=== PATIENT | female | born 1985 | race Hispanic/Latino ===

== ENCOUNTER 2023-10-17 12:39 | Emergency (ER) | payer OTHER ==
[~2023-10-17] VITALS: Ht 154.9 cm; Wt 52.2 kg
[2023-10-17] MEDS ORDERED: ONDANSETRON 4MG INJ IVP ONE (13:30)
[2023-10-17] MEDS ORDERED: 0.9%NACL 1000ML 1,000 ML IV ONE (13:30)
[2023-10-17] MEDS ORDERED: KETOROLAC 30MG VIAL (30MG/ML) IVP ONE (13:30)
[2023-10-17 14:06] LABS: BASOPHILS # (AUTO) 0.04 K/uL (0.00-0.20); BASOPHILS % (AUTO) 0.3 % (0.0-5.0); EOSINOPHILS # (AUTO) 0.01 K/uL (0.00-0.70); EOSINOPHILS % (AUTO) 0.1 % (0.0-8.0); HEMATOCRIT 42.4 % (36-48); IMMATURE GRANULOCYTE ABSOLUTE 0.03 K/uL (0-1); LYMPHOCYTES # (AUTO) 0.5 K/uL (1.0-4.8); MEAN CORPUSCULAR HEMOGLOBIN 28.4 pg (27.0-33.0); MEAN CORPUSCULAR HGB CONC 32.3 g/dL (32.0-36.0); MEAN CORPUSCULAR VOLUME 87.8 fL (79-99); MONOCYTES # (AUTO) 0.1 K/uL (0.1-1.0); MONOCYTES % (AUTO) 0.6 % (3.0-13.0); NEUTROPHILS # (AUTO) 12.1 K/uL (1.8-7.7); NEUTROPHILS % (AUTO) 94.8 % (40.0-77.0); PLATELET COUNT (AUTO) 316 K/uL (130-400); RED BLOOD CELL COUNT(AUTO) 4.83 MIL/uL (4.00-5.50); RED CELL DISTRIBUTION WIDTH 12.9 % (11.0-15.5); WHITE BLOOD COUNT (AUTO) 12.8 K/uL (4.8-10.8)
[2023-10-17 14:17] LABS: APPEARANCE,URINE CLEAR (CLEAR); BILIRUBIN,URINE NEGATIVE (NEGATIVE); COLOR,URINE YELLOW (YELLOW); GLUCOSE, URINE (UA) NEGATIVE (NEGATIVE); KETONES,URINE 150 mg/dL (NEGATIVE); LEUKOCYTE ESTERASE ,URINE 75 Leu/uL (NEGATIVE); NITRATE,URINE NEGATIVE (NEGATIVE); PROTEIN,URINE 30 mg/dL (NEGATIVE); UROBILINOGEN,URINE 0.2 mg/dL (0.2-1.0)
[2023-10-17 14:20] LABS: ADD UA MICROSCOPIC YES
[2023-10-17 14:21] LABS: ALBUMIN 4.1 g/dL (3.5-5.0); BILIRUBIN,TOTAL 1.1 mg/dL (0.2-1.0); TOTAL PROTEIN, SERUM 7.7 g/dL (6.0-8.3)
[2023-10-17 14:22] LABS: HCG,QUALITATIVE URINE NEGATIVE (NEGATIVE)
[2023-10-17 14:23] LABS: BACTERIA,URINE FEW /HPF (None Seen); MUCUS,URINE MOD LPF (None Seen); SQUAMOUS EPITHELIAL CELL,UR FEW /HPF (0-2); WBC,URINE 26-50 /HPF (0-1)
[2023-10-17] MEDS ORDERED: TAMSULOSIN HCL 0.4 MG CAP.ER.24H PO ONE (15:30)
[2023-10-17] MEDS ORDERED: IBUP-2077 PO (15:35)
[2023-10-17] MEDS ORDERED: ONDA4TAB10 PO (15:35)
[2023-10-17] MEDS ORDERED: TAMS-1 PO (15:35)
[2023-10-17 15:40] VITALS: BP 144/85; PULSE 75; RESP 16; O2SAT 100
[2023-10-17] MEDS ORDERED: IBUPROFEN 800 MG TAB PO ONE (16:00)
[2023-10-17 16:11] LABS: PLATELET MORPHOLOGY PLT CLUMPS PRESENT
== END 2023-10-17 15:52 | disposition home or self-care (01) ==
LOC: EDH 12:39
DX: N13.2 Hydronephrosis with renal and ureteral calculous obstruction (principal); Z79.899 Other long term (current) drug therapy
CPT/HCPCS: 99285; 74176; 96374; 96375; 80053; 83690; 85025; 87077; 87088; 87186; 81001; 81025; 36415; J2405; J1885